=== PATIENT | female | born 1940 | race Caucasian/White ===

== ENCOUNTER 2019-04-14 05:51 | Inpatient (IN) | payer MEDICARE, OTHER ==
[2019-04-11 09:31] VITALS: BMI 34.3
--- NOTE | 2019-04-13 20:07 | HP ---
REASON FOR ADMISSION: "I am here for my back surgery." HISTORY OF PRESENT ILLNESS: All Jauregui is a 79-year-old woman whom we met in our Neurosurgery Clinic in July of 2018 for back and radiating leg pain. If Ms. Jauregui stands for any period of time, she begins to have aching in the gluteal muscles and radiating down the legs. She has to lean forward or sit down for relief. We attempted to manage this with injections and physical therapy as well as medication and activity modification, but the results were not satisfactory. The pain is still adversely affecting her quality of life. She would like to have a more permanent solution now. PAST MEDICAL HISTORY: Hyperlipidemia, seasonal allergies, chronic pain, hypertension. PAST SURGICAL HISTORY: 1. Hysterectomy in 1997. 2. Cardiac stents in 2009. 3. Total knee replacement in 2011. MEDICATIONS: 1. Isosorbide dinitrate. 2. Requip. 3. Atenolol. 4. Aspirin. 5. Ramipril. ALLERGIES: PENICILLIN, SULFA, AND CERTAIN CHOLESTEROL MEDICATIONS (STATINS, MOST LIKELY). FAMILY HISTORY: The patient's father is , had cancer while he was living. Her mother with a history of heart disease. Her children are alive and healthy. SOCIAL HISTORY: The patient denies any nicotine use in the past. She does not drink alcoholic beverages or use illicit drugs. She wants to remain active as a mother and grandmother and the pain is preventing her from doing that. PHYSICAL EXAMINATION: VITAL SIGNS: Ms. Jauregui is 5 feet 4 inches tall, she was about 195 pounds. GENERAL: Ms. Jauregui is awake and alert. She answers questions appropriately. Her cognitive function is normal. There is no dysesthesia or dysarthria. NEUROLOGIC: The cranial nerves are grossly intact. Her motor examination does not reveal any significant weakness in the iliopsoas, quadriceps, hamstrings, anterior tib, EHL, gastroc or toe flexors. There is no area of specific dermatomal sensory loss in the lower extremities. The reflexes are hypoactive, but symmetric. There is no clonus. ADMISSION FINDINGS AND TEST RESULTS: 1. There is a spondylolisthesis at L4-5 with significant stenosis. There is moderate-to- severe stenosis at L3-L4. 2. Flexion-extension x-rays do not show instability. There is right-sided foraminal disease around the L5 nerve root at L5-S1 (asymptomatic). IMPRESSION: 1. Lumbar stenosis. 2. Lumbar spondylolisthesis. 3. Neurogenic claudication, adversely affecting quality of life. 4. Ms. Jauregui is here for a decompression from L3-L5 with a transforaminal lumbar interbody arthrodesis at L4-L5 for her spondylolisthesis. Informed consent was obtained in the office. We will take her to the operating room. Job ID: [id number]
[2019-04-14] MEDS ORDERED: Levofloxacin 500 mg/D5W 100 ml Premix Bag ONE (06:14)
[2019-04-14] MEDS ORDERED: Clindamycin/D5W 900 mg/50 ml Premix Bag ONE (06:14)
[2019-04-14] MEDS ORDERED: Thrombin 5000 UNITS/5 ML VIAL ONE (06:27)
[2019-04-14 06:30] LABS: #Basophils 0.1 thou/uL (0.0-0.2); #Eosinphils 0.2 thou/uL (0.0-0.7); #Lymphocytes 2.3 thou/uL (1.20-3.40); #Monocytes 0.5 thou/uL (0.11-0.59); #Neutrophils 5.2 thou/uL (1.40-6.50); %Basophils 0.9 % (0.0-1.0); %Eosinophils 1.9 % (0.0-10.0); %Lymphocytes 28.4 % (21.0-51.0); %Monocytes 5.7 % (0.0-10.0); Hemoglobin 12.8 g/dL (12.0-16.0); Mean Corpuscular HGB CONC 33.6 g/dL (32.0-36.0); Mean Corpuscular Hemoglobin 31.4 pg (27.0-31.0); Mean Corpuscular Volume 93.4 fL (78.0-98.0); Mean Platelet Volume 8.2 fL (7.4-10.4); Platelet Count 305 thou/uL (130-400); RBC Distribution Width 11.8 % (11.5-14.5); Red Blood Cell (RBC) Count 4.09 mill/uL (4.20-5.40); White Blood Cell (WBC) Count 8.2 thou/uL (4.8-10.8)
[2019-04-14 06:37] LABS: INR-International Normal Ratio 0.9; PTT 25.4 SEC (22.9-36.1); Prothrombin Time 12.2 SEC (12.0-14.7)
[2019-04-14] MEDS ORDERED: Phenylephrine HCL 10 MG/ML VIAL ONE (06:44)
[2019-04-14] MEDS ORDERED: Fentanyl 100 MCG/2 ML VIAL ONE ×2 (06:44→11:33)
[2019-04-14] MEDS ORDERED: EPINEPHrine 1 MG/ML AMP ONE (06:45)
[2019-04-14] MEDS ORDERED: Bupivacaine PF 0.5% 30 ML VIAL ONE (06:45)
[2019-04-14 06:51] LABS: Anion Gap 13 mmol/L (10-20); BUN (Urea Nitrogen) 23 mg/dL (9.8-20.1); Calc. Creatinine Clearance 87 mL/min (70-130); Calcium 8.7 mg/dL (7.8-10.44); Carbon Dioxide 21 mmol/L (23-31); Chloride 110 mmol/L (98-107); Estimated GFR-MDRD 76; Glucose 99 mg/dL (83-110); Potassium 3.9 mmol/L (3.5-5.1); Sodium 140 mmol/L (136-145)
[2019-04-14] MEDS ORDERED: Glycopyrrolate 0.2 MG/ML 5 ML SYRINGE ONE (09:54)
[2019-04-14] MEDS ORDERED: Esmolol 100 MG/10 ML VIAL ONE (09:54)
[2019-04-14] MEDS ORDERED: PHENYLEPHRINE-NS 100 MCG/ML 10 ML SYRINGE ONE (09:54)
[2019-04-14] MEDS ORDERED: Ondansetron PF 4 MG/2 ML Vial ONE (09:54)
[2019-04-14] MEDS ORDERED: Lidocaine 1% PF 5 ML VIAL ONE (09:54)
[2019-04-14] MEDS ORDERED: Ketorolac Tromethamine 30 MG/ML VIAL ONE (09:54)
[2019-04-14] MEDS ORDERED: PROPOFOL 200 MG/20 ML VIAL ONE (09:54)
[2019-04-14] MEDS ORDERED: Dexamethasone 20 MG/5 ML VIAL ONE (09:54)
[2019-04-14] MEDS ORDERED: Rocuronium Bromide 10 MG/ML (10ML VIAL) ONE (09:54)
[2019-04-14] MEDS ORDERED: Promethazine HCl 25 MG/ML VIAL IM PRN ×2 (10:22→11:17)
[2019-04-14] MEDS ORDERED: Promethazine HCl 25 MG/ML VIAL SLOW IVP PRN (10:22)
[2019-04-14] MEDS ORDERED: Ondansetron HCl/PF 4 MG/2 ML Vial IVP PRN (10:22)
[2019-04-14] MEDS ORDERED: Milk Of Magnesia 30 ML UDCUP PO PRN (11:17)
[2019-04-14] MEDS ORDERED: Promethazine HCl 12.5 MG SUPP PR PRN (11:17)
[2019-04-14] MEDS ORDERED: Bisacodyl 10 MG SUPP PR PRN (11:17)
[2019-04-14] MEDS ORDERED: Ondansetron PF 4 MG/2 ML Vial IVP PRN (11:17)
[2019-04-14] MEDS ORDERED: Acetaminophen 650 MG Suppository PR PRN (11:17)
[2019-04-14] MEDS ORDERED: Mag-Al 1200 mg/1200 mg/30 ML UDCUP PO PRN (11:17)
[2019-04-14] MEDS ORDERED: Morphine 2 MG/ML SYRINGE SLOW IVP PRN (11:17)
[2019-04-14] MEDS ORDERED: diphenhydrAMINE 25 MG CAP PO PRN (11:17)
[2019-04-14] MEDS ORDERED: Promethazine 25 MG TAB PO PRN (11:17)
[2019-04-14] MEDS ORDERED: diphenhydrAMINE 50 MG/ML VIAL IVP PRN (11:17)
[2019-04-14] MEDS ORDERED: Morphine 4 MG/ML VIAL SLOW IVP PRN (11:17)
--- NOTE | 2019-04-14 15:02 | OP ---
DATE OF PROCEDURE: 04/14/2019 CODE INSPECTOR: Bill Giles PA-C. PREOPERATIVE INDICATION: Treat pain and prevent neurological deterioration. PREOPERATIVE DIAGNOSIS: Two-level lumbar spinal stenosis and foraminal stenosis with neurogenic claudication at L3-4 and L4-5, spondylolisthesis at L4-5. POSTOPERATIVE DIAGNOSIS: Two-level lumbar spinal stenosis and foraminal stenosis with neurogenic claudication at L3-4 and L4-5, spondylolisthesis at L4-5. PROCEDURE PERFORMED: Decompressive laminectomy, medial facetectomy, foraminotomy at L3-4 and L4-5; transforaminal lumbar interbody arthrodesis at L4-L5; placement of intervertebral biomechanical device, L4-L5; pedicle screw and ria instrumentation, L4-L5; posterolateral arthrodesis, L4-L5. PREOPERATIVE MEDICATION: Ancef 2 g IV. DRAIN NUMBER: 1. DRAIN TYPE: 10-Cub[place] Dmitriy. DESCRIPTION OF PROCEDURE: The patient was brought to the operating room. General endotracheal anesthesia was induced. The patient was carefully positioned on the Darío frame with the appropriate padding for the chest and hips. A lateral fluoro radiograph was used to plan our incision. The lumbar skin was sterilely prepped and draped. We opened with a 10-blade knife and we controlled bleeding with bipolar and monopolar cautery. We used monopolar cautery to dissect through subcutaneous tissues to the thoracodorsal fascia. We incised the fascia in the midline and reflected paraspinal muscles off the spinous process and lamina of L3, L4, and L5. A self-retaining retractor was placed and a lateral fluoro radiograph confirmed the levels upon which we were operating. We then used an Adson rongeur to remove the spinous process of L3-L4 and the top of L5. A Kerrison rongeur was used to fashion a laminectomy down the midline. We widened our laminectomy defect until we were lateral to the dura. We had to perform medial facetectomies and foraminotomies at L3-L4 and L4-L5. We ensured the L3, L4, and L5 nerve roots could pass out their respective foramina without impingement by performing these foraminotomies. The lateral recesses were well decompressed after our medial facetectomies. With the neural elements decompressed, we turned our attention to arthrodesis. We completed our facetectomy at L4-L5 on the right side. With a complete facetectomy done, we could access the intervertebral space through the foramen. We ensured the L4 nerve root was well decompressed and then we incised the disk space. We removed disk contents using curettes and rongeurs. We then used a set of curettes to prepare the endplates for grafting. A set of bone rasps were brought into the field. With sequentially larger rasp, we measured the height of the interspace to 10 mm. A 10 mm PEEK intervertebral graft was brought into the field. Our laminectomy bone and facetectomy bone was cleaned of all soft tissue attachments, morcellized and added into a demineralized bone matrix as our fusion substrate. The substrate was packed into the center of the PEEK device and the PEEK device was advanced into the L4-L5 interspace under radiographic guidance to the appropriate depth. We turned our attention to pedicle screw instrumentation. Using bony anatomic landmarks, palpation of the medial portion of the pedicles, and a lateral fluoro radiograph as our guide, we chose entry points for pedicle screws at L4 and L5 bilaterally. We drilled out our entry points and used a bone awl to create our trajectories through the pedicles. We tapped the trajectories with a threaded tap and probed them. They were all completely encased in bone. We placed 6.5 mm diameter screws into the pedicles of L4 and L5 bilaterally. We irrigated copiously with bacitracin irrigation. The rods were brought down into the screw heads and we tightened caps over the rods per. Before final tightening, we applied gentle compression across the interspace to keep the interbody graft in place. Using a torque/counter-torque mechanism, we ensured adequate tightness. We then irrigated once again with bacitracin irrigation. We decorticated the transverse processes of L4 and L5 bilaterally and left demineralized bone matrix and morselized autograft over the decorticated bone as our posterior lateral fusion substrate. We controlled epidural bleeding with gentle bipolar cautery. We tunneled the drain inferiorly through a separate stab incision. We irrigated the center of the wound once again. We treated the wound with vancomycin powder and we closed the wound in anatomical layers over the drain. A sterile dressing was applied. This was a clean case, no contamination. Job ID: [id number]
--- NOTE | 2019-04-14 15:26 | CON ---
DATE OF CONSULTATION: PRIMARY CARE PHYSICIAN: Dr. Jeffery Massey in [place]. PRIMARY TEAM: Neurosurgery, Dr. Mary. REASON FOR CONSULTATION: Medical management. HISTORY OF PRESENT ILLNESS: This is a 79-year-old white female with a known history of lumbar stenosis, who came in for laminectomy and transforaminal lumbar interbody arthrodesis. She had the procedure done earlier today and is doing well postoperatively without any complaints. Prior to surgery, she was having a lot of pain behind her right knee and numbness and tingling of her right toes and starting to get some in her left toes as well. PAST MEDICAL HISTORY: 1. Coronary artery disease. 2. Hypertension. 3. Hyperlipidemia. 4. Chronic pain. 5. Seasonal allergies. PAST SURGICAL HISTORY: 1. Hysterectomy. 2. Cholecystectomy. 3. Cardiac stents in 2009. 4. Negative cardiac stress test 2 months ago. 5. Right knee arthroscopy. 6. Left total knee replacement in 2011. FAMILY HISTORY: Mother with history of heart disease, from which she . Father with colon cancer, also . She has a sister with breast cancer. Another sister with ovarian cancer. SOCIAL HISTORY: No tobacco, alcohol, or illicit drug use. She is a . ALLERGIES: 1. PENICILLIN. 2. SULFA ANTIBIOTICS. 3. STATINS. CURRENT MEDICATIONS: 1. Aspirin 81 mg daily. 2. Lexapro 5 mg daily. 3. Ramipril 10 mg twice a day. 4. Ropinirole 0.25 mg at night. REVIEW OF SYSTEMS: CONSTITUTIONAL: No fevers. No chills. EYES: No double vision or blurred vision. ENT: No congestion or drainage. The patient had no sore throat coming in. She is a little scratchy since the surgery, and the intubation has caused a little bit. CARDIOVASCULAR: No chest pain. No palpitations or racing heart. PULMONARY: No coughing, wheezing, or shortness of breath. GASTROINTESTINAL: No abdominal pain. No nausea or vomiting. No diarrhea or constipation. GENITOURINARY: No dysuria or hematuria. MUSCULOSKELETAL: See HPI. SKIN: No rashes or other lesions she has noted. NEUROLOGIC: See HPI. No other focal weakness or focal neurologic signs. PHYSICAL EXAMINATION: VITAL SIGNS: Blood pressure 142/87, heart rate 87, temperature 97.1, respirations 20, O2 saturation 94% on room air. GENERAL: This is a well-developed, well-nourished, elderly, white female, in no acute distress. HEENT: Pupils are equal, round, and reactive to light. Oropharynx is clear without lesions, erythema, or exudate. NECK: Supple. No lymphadenopathy. No thyroid nodules or enlargement. No JVD. HEART: Regular rate and rhythm. No murmurs, rubs, or gallops. LUNGS: Clear to auscultation bilaterally. No wheezes, crackles, or rhonchi. ABDOMEN: Soft. Nontender to palpation. Normoactive bowel sounds. No hepatosplenomegaly or other masses. EXTREMITIES: No clubbing, cyanosis, or edema. She does have SCDs in place bilaterally on her lower legs. SKIN: No rashes or other lesions noted. NEUROLOGIC: She has intact strength and sensation in all extremities. No facial droop. PSYCHIATRIC: Alert and oriented x3. Normal mood and affect. LABORATORY DATA: CBC within normal limits. Coagulation profile normal. Basic metabolic panel is notable for chloride of 110, carbon dioxide of 21, BUN of 23, and rest is normal. ASSESSMENT: 1. Lumbar stenosis and spondylolisthesis, status post laminectomy and transforaminal lumbar interbody fusion at L3-L4 and L4-L5. 2. Hypertension. Resuming home blood pressure medications. 3. Coronary artery disease. We will resume aspirin when okay with Neurosurgery. 4. Hyperlipidemia. 5. Gastrointestinal prophylaxis. The patient is on Pepcid twice a day. 6. Deep venous thrombosis prophylaxis. The patient is on bilateral SCDs. CODE STATUS: I did discuss this with the patient. She is a full code. Should she be incapacitated, her daughters will be her medical decision makers. Their names are Stephanie Ferraro and Carmen Obando. Job ID: [id number]
[2019-04-14] MEDS: Clindamycin/D5W 900 MG in Premix Bag 1 BAG IVPB SCH ×2 (15:40→21:53)
[2019-04-14] MEDS: HYDROcodone/Acetaminophen 7.5/325 mg Tablet PO PRN ×2 (15:40→21:52)
[2019-04-14] MEDS: Scopolamine 1.5 mg/72 hour Patch TD SCH (15:46)
[2019-04-14] MEDS: Ramipril 5 MG CAP PO SCH (20:43)
[2019-04-14] MEDS: rOPINIRole HCl 0.25 MG TAB PO SCH (20:44)
[2019-04-14] MEDS: Famotidine 20 MG TAB PO SCH (20:44)
[2019-04-14] MEDS: Sodium Chloride 0.9% 1,000 ML IV SCH (21:53)
[2019-04-15] MEDS: HYDROcodone/Acetaminophen 7.5/325 mg Tablet PO PRN ×4 (03:45→23:34)
[2019-04-15] MEDS: Sodium Chloride 0.9% 1,000 ML IV SCH (03:49)
[2019-04-15] MEDS: Clindamycin/D5W 900 MG in Premix Bag 1 BAG IVPB SCH ×3 (05:44→21:11)
--- NOTE | 2019-04-15 06:46 | PRG ---
DATE OF SERVICE: 04/15/2019 I saw Ms. Jauregui this morning on rounds. She is one day out from a laminectomy with fusion. The excruciating right leg pain she got rolling over in bed prior to surgery, did not happen last night. She has not tested it with long walks yet, but she is optimistic that this has solved her problem. I do not see any fevers recorded on the electronic vital signs. Her other vitals have been stable. Her drain output is 250 mL since surgery. Today's plan is to stand, walk, and mobilize with physical therapy. I am going to have to leave the drain in and continue antibiotics until it tapers off. If she becomes independent for activities of daily living, she can look forward to discharge in the coming days. If she needs some more assistance, an inpatient rehabilitation is the likely transition point on the way home. Job ID: [id number]
[2019-04-15] MEDS: Famotidine 20 MG TAB PO SCH ×2 (08:18→20:55)
[2019-04-15] MEDS: Escitalopram Oxalate 10 mg Tablet PO SCH (08:19)
[2019-04-15] MEDS: Ramipril 5 MG CAP PO SCH (08:20)
--- NOTE | 2019-04-15 14:02 | PDOC.HOSPP ---
- Subjective Subjective: pt doing well, able to walked this am with PT and no pain on ambulation. - Objective Vital Signs & Weight: Vital Signs (12 hours) Temp Pulse Resp BP BP Pulse Ox 04/15/19 11:35 97.9 F 63 16 100/63 92 L 04/15/19 08:20 119/69 04/15/19 07:28 98.8 F 75 16 92/59 L 95 04/15/19 03:45 98.5 F 64 18 109/68 94 L Weight Weight 194 lb I&O: 04/14/19 04/15/19 04/16/19 06:59 06:59 06:59 Intake Total 850 Output Total 415 120 Balance 435 -120 Result Diagrams: 04/14/19 06:22 04/14/19 06:22 Hospitalist ROS - Medication Medications: Active Medications Generic Name Dose Route Start Last Admin Trade Name Freq PRN Reason Stop Dose Admin Hydrocodone Bitart/Acetaminophen 1 tab 04/14/19 11:17 04/15/19 08:19 [place] 7.5/325 PO 1 tab Q4H PRN Administration Mild Pain (1-3) Escitalopram Oxalate 5 mg 04/15/19 09:00 04/15/19 08:19 Lexapro PO 5 mg DAILY NAKIA Administration Famotidine 20 mg 04/14/19 21:00 04/15/19 08:18 Pepcid PO 20 mg BID NAKIA Administration Clindamycin Phosphate/Dextrose 50 mls @ 100 mls/hr 04/14/19 14:00 04/15/19 05 :44 900 mg/ Device IVPB 50 mls Q8H NAKIA Administration Sodium Chloride 1,000 mls @ 75 mls/hr 04/14/19 11:30 04/15/19 03:49 Normal Saline 0.9% IV Not Given .[id number] NAKIA Levofloxacin 500 mg 04/15/19 06:00 04/15/19 05:45 Levaquin PO 500 mg 0600 NAKIA Administration Ramipril 10 mg 04/14/19 21:00 04/15/19 08:20 Altace PO Not Given BID NAKIA Ropinirole HCl 0.25 mg 04/14/19 21:00 04/14/19 20:44 Requip PO 0.25 mg HS NAKIA Administration Scopolamine 1.5 mg 04/14/19 11:30 04/14/19 15:46 Transderm Scop TD 1.5 mg Q3D NAKIA Administration - Exam General Appearance: NAD, awake alert Eye: PERRL ENT: normocephalic atraumatic Neck: supple, symmetric Heart: RRR, no murmur Respiratory: CTAB, no wheezes Gastrointestinal: soft, non-tender, non-distended, normal bowel sounds Neurological - other findings: l3-L5 laminectomy Hosp A/P - Plan old records reviewed/req s/p Laminectomy L3 - L5 -participating in PT and doing well. -on clinda adn LQ pain mgmt - she is on several analgesic at freq..doses --titrated, added stool softener HTN -on ramipril--will hold -BP on the low end - HLP - no statin on board RLS - ropirolone will follow her closely.
[2019-04-15] MEDS ORDERED: hydrALAZINE 20 MG/ML VIAL SLOW IVP PRN (14:09)
[2019-04-15] MEDS: Acetaminophen 325 MG TAB PO PRN (14:54)
[2019-04-15] MEDS: tiZANidine HCl 4 MG TAB PO PRN (20:55)
[2019-04-15] MEDS: rOPINIRole HCl 0.25 MG TAB PO SCH (21:01)
[2019-04-15] MEDS: Senokot S 8.6-50 MG TAB PO SCH (21:01)
[2019-04-16] MEDS: Clindamycin/D5W 900 MG in Premix Bag 1 BAG IVPB SCH ×3 (05:58→21:59)
[2019-04-16] MEDS: Acetaminophen 325 MG TAB PO PRN (05:58)
--- NOTE | 2019-04-16 07:17 | PRG ---
DATE OF SERVICE: 04/16/2019 I saw Ms. Jauregui in our hospital room this morning. She is 2 days out from decompression and fusion of lumbar spine. Her drain output was 165 mL since 7 p.m. yesterday. There has been no electronic record of this, however. Ms. Jauregui was anxious to get inpatient rehabilitation, but she walked five times around the floor yesterday and she was not felt to be a candidate, but rather a candidate for home health therapy. Overnight, her vital signs been stable. I do not see any fevers recorded. Her neurological function is good. The drain output is above 10 mL an hour. We will wait for the drain output to taper off before discharge. She will take advantage of her access to physical therapy today and learn how to get in and out of a flat bed (which she has at home), so that she is safe for activities of daily living. Job ID: [id number]
[2019-04-16] MEDS: Ramipril 5 MG CAP PO SCH (08:59)
[2019-04-16] MEDS: Senokot S 8.6-50 MG TAB PO SCH ×2 (09:00→20:08)
[2019-04-16] MEDS: Escitalopram Oxalate 10 mg Tablet PO SCH (09:00)
[2019-04-16] MEDS: Famotidine 20 MG TAB PO SCH ×2 (09:00→20:08)
--- NOTE | 2019-04-16 11:58 | PDOC.HOSPP ---
- Subjective Subjective: she is doing well, participating w.. PT. BP and BG good. - Objective Vital Signs & Weight: Vital Signs (12 hours) Temp Pulse Resp BP Pulse Ox 04/16/19 11:23 97.8 F 64 16 112/68 96 04/16/19 07:29 97.9 F 60 16 93/59 L 92 L 04/16/19 03:11 97.5 F L 54 L 16 97/61 94 L Weight Weight 194 lb I&O: 04/15/19 04/16/19 04/17/19 06:59 06:59 06:59 Intake Total 850 790 Output Total 415 455 Balance 435 335 Result Diagrams: 04/14/19 06:22 04/14/19 06:22 Hospitalist ROS - Medication Medications: Active Medications Generic Name Dose Route Start Last Admin Trade Name Freq PRN Reason Stop Dose Admin Acetaminophen 650 mg 04/14/19 11:17 04/16/19 05:58 Tylenol PO 650 mg Q4H PRN Administration Headache/Fever or Pain Hydrocodone Bitart/Acetaminophen 1 tab 04/15/19 14:17 04/15/19 23:34 [place] 7.5/325 PO 1 tab Q4H PRN Administration Mild Pain (1-3) Escitalopram Oxalate 5 mg 04/15/19 09:00 04/16/19 09:00 Lexapro PO 5 mg DAILY NAKIA Administration Famotidine 20 mg 04/14/19 21:00 04/16/19 09:00 Pepcid PO 20 mg BID NAKIA Administration Clindamycin Phosphate/Dextrose 50 mls @ 100 mls/hr 04/14/19 14:00 04/16/19 05 :58 900 mg/ Device IVPB 50 mls Q8H NAKIA Administration Levofloxacin 500 mg 04/15/19 06:00 04/16/19 05:58 Levaquin PO 500 mg 0600 NAKIA Administration Ramipril 10 mg 04/16/19 09:00 04/16/19 08:59 Altace PO Not Given DAILY NAKIA Ropinirole HCl 0.25 mg 04/14/19 21:00 04/15/19 21:01 Requip PO 0.25 mg HS NAKIA Administration Scopolamine 1.5 mg 04/14/19 11:30 04/14/19 15:46 Transderm Scop TD 1.5 mg Q3D NAKIA Administration Senna/Docusate Sodium 1 tab 04/15/19 21:00 04/16/19 09:00 Senokot S PO 1 tab BID NAKIA Administration Tizanidine HCl 4 mg 04/14/19 11:17 04/15/19 20:55 Zanaflex PO 4 mg Q6H PRN Administration Muscle Spasm - Exam General Appearance: NAD, awake alert Eye: PERRL ENT: normocephalic atraumatic Neck: supple, symmetric Heart: RRR, no murmur Respiratory: CTAB, no wheezes Gastrointestinal: soft, non-tender, normal bowel sounds Neurological: no focal deficits Hosp A/P - Plan s/p Laminectomy L3 - L5 -participating in PT and doing well. -on clinda adn LQ pain mgmt - she is on several analgesic at freq..doses --titrated, added stool softener HTN -on ramipril--will hold -BP on the low end - HLP - no statin on board RLS - ropirolone BP and BG are good. will follow her closely.
[2019-04-16] MEDS: HYDROcodone/Acetaminophen 7.5/325 mg Tablet PO PRN ×2 (14:09→20:06)
[2019-04-16] MEDS: tiZANidine HCl 4 MG TAB PO PRN (15:04)
[2019-04-16] MEDS: rOPINIRole HCl 0.25 MG TAB PO SCH (20:08)
[2019-04-17] MEDS: HYDROcodone/Acetaminophen 7.5/325 mg Tablet PO PRN ×4 (04:17→23:11)
[2019-04-17] MEDS: Clindamycin/D5W 900 MG in Premix Bag 1 BAG IVPB SCH ×3 (05:23→21:12)
[2019-04-17 07:05] LABS: #Eosinphils 0.2 thou/uL (0.0-0.7); #Lymphocytes 1.9 thou/uL (1.20-3.40); #Monocytes 0.5 thou/uL (0.11-0.59); #Neutrophils 3.8 thou/uL (1.40-6.50); %Basophils 0.1 % (0.0-1.0); %Eosinophils 3.1 % (0.0-10.0); %Lymphocytes 29.3 % (21.0-51.0); %Monocytes 8.5 % (0.0-10.0); Hemoglobin 9.5 g/dL (12.0-16.0); Mean Corpuscular HGB CONC 34.1 g/dL (32.0-36.0); Mean Corpuscular Hemoglobin 32.1 pg (27.0-31.0); Mean Corpuscular Volume 94.2 fL (78.0-98.0); Mean Platelet Volume 8.2 fL (7.4-10.4); Platelet Count 258 thou/uL (130-400); RBC Distribution Width 11.7 % (11.5-14.5); Red Blood Cell (RBC) Count 2.96 mill/uL (4.20-5.40); White Blood Cell (WBC) Count 6.4 thou/uL (4.8-10.8)
--- NOTE | 2019-04-17 07:10 | PRG ---
DATE OF SERVICE: 04/17/2019 Ms. Jauregui is 3 days out from decompression and fusion of lumbar spine. She had some recurrent right leg pain in a similar distribution before surgery, but it is intermittent and not as severe. The more she walks, the better it feels. Otherwise, she is doing well. Among electronically recorded vital signs, I find no fevers. Her blood pressures had been in the 100s to the 120s. Her pulse have been in 60s and 70s. Neurological function in lower extremities is stable. The drain output is higher than I would like to see before removal. It is averaging around 10 mL an hour. Our plan is to check a CBC and chemistry. Most of the drain output looks serous from tissue fluid. There was a significant amount of this during dissection and may be indicative of some dependent edema and poor cardiac function. Nonetheless, a CBC would be helpful to make sure that she is not losing hemoglobin. Today's plan is to work more with physical therapy to get in and out of bed on her own to flex her hips when she is resting in bed to ensure that scar tissue does not tether the nerves too strenuously. She should walk frequently. We will use thumbprint suction only on the drain so that the negative pressure is slightly reduced. Then, record the drain output electronically every 2 hours so that we can have a good idea what the trend is. Job ID: [id number]
[2019-04-17 07:13] LABS: Anion Gap 12 mmol/L (10-20); BUN (Urea Nitrogen) 10 mg/dL (9.8-20.1); Calc. Creatinine Clearance 82 mL/min (70-130); Calcium 8.2 mg/dL (7.8-10.44); Carbon Dioxide 23 mmol/L (23-31); Chloride 105 mmol/L (98-107); Estimated GFR-MDRD 70; Glucose 89 mg/dL (83-110); Potassium 3.6 mmol/L (3.5-5.1); Sodium 136 mmol/L (136-145)
[2019-04-17] MEDS: Famotidine 20 MG TAB PO SCH ×2 (08:14→19:55)
[2019-04-17] MEDS: Escitalopram Oxalate 10 mg Tablet PO SCH (08:14)
[2019-04-17] MEDS: Senokot S 8.6-50 MG TAB PO SCH ×2 (08:14→19:55)
[2019-04-17] MEDS: Ramipril 5 MG CAP PO SCH (08:15)
[2019-04-17] MEDS: Scopolamine 1.5 mg/72 hour Patch TD SCH (11:00)
[2019-04-17] MEDS: tiZANidine HCl 4 MG TAB PO PRN (12:18)
--- NOTE | 2019-04-17 15:02 | PDOC.HOSPP ---
- Subjective Subjective: pt ambulated well in the hallway, no pain at baseline. NS drain on the back has serosanguinous and actively draining. - Objective Vital Signs & Weight: Vital Signs (12 hours) Temp Pulse Resp BP Pulse Ox 04/17/19 11:45 97.7 F 75 18 118/70 96 04/17/19 07:40 98.1 F 61 18 149/63 H 96 04/17/19 03:14 98.0 F 70 16 121/71 96 Weight Weight 194 lb I&O: 04/16/19 04/17/19 04/18/19 06:59 06:59 06:59 Intake Total 790 1250 Output Total 455 385 60 Balance 335 865 -60 Result Diagrams: 04/17/19 06:45 04/17/19 06:45 Hospitalist ROS - Medication Medications: Active Medications Generic Name Dose Route Start Last Admin Trade Name Freq PRN Reason Stop Dose Admin Acetaminophen 650 mg 04/14/19 11:17 04/16/19 05:58 Tylenol PO 650 mg Q4H PRN Administration Headache/Fever or Pain Hydrocodone Bitart/Acetaminophen 1 tab 04/15/19 14:17 04/17/19 08:14 [place] 7.5/325 PO 1 tab Q4H PRN Administration Mild Pain (1-3) Escitalopram Oxalate 5 mg 04/15/19 09:00 04/17/19 08:14 Lexapro PO 5 mg DAILY NAKIA Administration Famotidine 20 mg 04/14/19 21:00 04/17/19 08:14 Pepcid PO 20 mg BID NAKIA Administration Clindamycin Phosphate/Dextrose 50 mls @ 100 mls/hr 04/14/19 14:00 04/17/19 05 :23 900 mg/ Device IVPB 50 mls Q8H NAKIA Administration Levofloxacin 500 mg 04/15/19 06:00 04/17/19 05:23 Levaquin PO 500 mg 0600 NAKIA Administration Ramipril 10 mg 04/16/19 09:00 04/17/19 08:15 Altace PO 10 mg DAILY NAKIA Administration Ropinirole HCl 0.25 mg 04/14/19 21:00 04/16/19 20:08 Requip PO 0.25 mg HS NAKIA Administration Scopolamine 1.5 mg 04/14/19 11:30 04/17/19 11:00 Transderm Scop TD Not Given Q3D NAKIA Senna/Docusate Sodium 1 tab 04/15/19 21:00 04/17/19 08:14 Senokot S PO 1 tab BID NAKIA Administration Tizanidine HCl 4 mg 04/14/19 11:17 04/17/19 12:18 Zanaflex PO 4 mg Q6H PRN Administration Muscle Spasm - Exam General Appearance: NAD, awake alert Eye: PERRL ENT: normocephalic atraumatic Neck: supple, symmetric Heart: RRR Respiratory: CTAB Gastrointestinal: soft, non-tender, normal bowel sounds Extremities: no cyanosis Neurological - other findings: laminectomy - drain vac Hosp A/P - Plan s/p Laminectomy L3 - L5 -participating in PT and doing well. -on clinda adn LQ pain mgmt - she is on several analgesic at freq..doses --titrated, added stool softener HTN -on ramipril--restarted on that -BP -acceptable range on 30 - HLP - no statin on board RLS - ropirolone BP and BG are good. will follow her closely. She is medically stable to be transferred to rehab, when available, at the discretion of [facility].
[2019-04-17] MEDS: rOPINIRole HCl 0.25 MG TAB PO SCH (19:55)
[2019-04-18] MEDS: HYDROcodone/Acetaminophen 7.5/325 mg Tablet PO PRN ×5 (05:11→21:00)
[2019-04-18] MEDS: Clindamycin/D5W 900 MG in Premix Bag 1 BAG IVPB SCH ×3 (05:12→21:00)
[2019-04-18 05:21] LABS: #Basophils 0.1 thou/uL (0.0-0.2); #Eosinphils 0.2 thou/uL (0.0-0.7); #Lymphocytes 1.5 thou/uL (1.20-3.40); #Monocytes 0.4 thou/uL (0.11-0.59); %Basophils 1.4 % (0.0-1.0); %Eosinophils 3.4 % (0.0-10.0); %Lymphocytes 29.2 % (21.0-51.0); %Monocytes 8.1 % (0.0-10.0); %Neutrophils 57.9 % (42.0-75.0); Mean Corpuscular HGB CONC 33.2 g/dL (32.0-36.0); Mean Corpuscular Hemoglobin 31.4 pg (27.0-31.0); Mean Corpuscular Volume 94.4 fL (78.0-98.0); Mean Platelet Volume 8.5 fL (7.4-10.4); Platelet Count 227 thou/uL (130-400); RBC Distribution Width 11.8 % (11.5-14.5); Red Blood Cell (RBC) Count 2.87 mill/uL (4.20-5.40); White Blood Cell (WBC) Count 5.1 thou/uL (4.8-10.8)
--- NOTE | 2019-04-18 07:40 | PRG ---
DATE OF SERVICE: 04/18/2019 Ms. Jauregui is 4 days out from decompression and fusion of the lumbar spine. She has done well with her moving in and out of bed and walking. Her drain continues to put out some tissue fluid. Overnight, the vitals have been stable. Blood pressures have been in the 90s to 120s. The neurological function in lower extremities good. Plan is to leave the drain in, but on no suction and have it emptied every 2 hours over the next 24 hours. We can remove the drain tomorrow morning and send her home. I am going to call in prescriptions to the [facility] in [place], [place], and we will see her in the office 2 weeks' later. Job ID: [id number]
[2019-04-18] MEDS: Ramipril 5 MG CAP PO SCH (09:14)
[2019-04-18] MEDS: Escitalopram Oxalate 10 mg Tablet PO SCH (09:14)
[2019-04-18] MEDS: Famotidine 20 MG TAB PO SCH ×2 (09:15→20:14)
[2019-04-18] MEDS: Senokot S 8.6-50 MG TAB PO SCH ×2 (09:16→20:14)
--- NOTE | 2019-04-18 14:16 | PDOC.HOSPP ---
- Subjective Encounter Date: 04/18/19 Encounter Time: 14:14 Subjective: Patient seen and examined. No new complaints. No overnight events - Objective Vital Signs & Weight: Vital Signs (12 hours) Temp Pulse Resp BP BP Pulse Ox 04/18/19 09:14 108/64 04/18/19 07:45 98.3 F 82 20 107/65 95 04/18/19 03:00 98.0 F 68 16 124/69 98 Weight Weight 194 lb I&O: 04/17/19 04/18/19 04/19/19 06:59 06:59 06:59 Intake Total 1250 1730 Output Total 385 295 80 Balance 865 1435 -80 Result Diagrams: 04/18/19 04:57 04/17/19 06:45 Hospitalist ROS - Review of Systems ENT: denies: ear pain, ear discharge, nose pain, nose discharge, nose congestion , mouth pain, mouth swelling, throat pain, throat swelling, other Respiratory: denies: cough, dry, shortness of breath, hemoptysis, SOB with excertion, pleuritic pain, sputum, wheezing, other Cardiovascular: denies: chest pain, palpitations, orthopnea, paroxysmal noc. dyspnea, edema, light headedness, other Gastrointestinal: denies: nausea, vomiting, abdominal pain, diarrhea, constipation, melena, hematochezia, other Genitourinary: denies: dysuria, frequency, incontinence, hematuria, retention, other Musculoskeletal: denies: neck pain, shoulder pain, arm pain, back pain, hand pain, leg pain, foot pain, other - Medication Medications: Active Medications Generic Name Dose Route Start Last Admin Trade Name Freq PRN Reason Stop Dose Admin Acetaminophen 650 mg 04/14/19 11:17 04/16/19 05:58 Tylenol PO 650 mg Q4H PRN Administration Headache/Fever or Pain Hydrocodone Bitart/Acetaminophen 2 tab 04/14/19 11:17 04/17/19 16:46 [place] 7.5/325 PO 2 tab Q4H PRN Administration Moderate Pain (4-6) Hydrocodone Bitart/Acetaminophen 1 tab 04/15/19 14:17 04/18/19 09:12 [place] 7.5/325 PO 1 tab Q4H PRN Administration Mild Pain (1-3) Escitalopram Oxalate 5 mg 04/15/19 09:00 04/18/19 09:14 Lexapro PO 5 mg DAILY NAKIA Administration Famotidine 20 mg 04/14/19 21:00 04/18/19 09:15 Pepcid PO 20 mg BID NAKIA Administration Clindamycin Phosphate/Dextrose 50 mls @ 100 mls/hr 04/17/19 22:00 04/18/19 05 :12 900 mg/ Device IVPB 50 mls Q8HR NAKIA Administration Levofloxacin 500 mg 04/15/19 06:00 04/18/19 05:12 Levaquin PO 500 mg 0600 NAKIA Administration Ramipril 10 mg 04/16/19 09:00 04/18/19 09:14 Altace PO 10 mg DAILY NAKIA Administration Ropinirole HCl 0.25 mg 04/14/19 21:00 04/17/19 19:55 Requip PO 0.25 mg HS NAKIA Administration Scopolamine 1.5 mg 04/14/19 11:30 04/17/19 11:00 Transderm Scop TD Not Given Q3D NAKIA Senna/Docusate Sodium 1 tab 04/15/19 21:00 04/18/19 09:16 Senokot S PO 1 tab BID NAKIA Administration Tizanidine HCl 4 mg 04/14/19 11:17 04/17/19 12:18 Zanaflex PO 4 mg Q6H PRN Administration Muscle Spasm - Exam General Appearance: NAD, awake alert Eye: PERRL, anicteric sclera ENT: normocephalic atraumatic, no oropharyngeal lesions Neck: supple, symmetric, no JVD, no thyromegaly Heart: RRR, no murmur, no gallops, no rubs Respiratory: CTAB, no wheezes, no rales, no ronchi Gastrointestinal: soft, non-tender, non-distended, normal bowel sounds Gastrointestinal - other findings: brace+ Extremities: no cyanosis, no clubbing, no edema Skin: normal turgor, no lesions Neurological: no focal deficits Musculoskeletal: normal tone, normal strength Psychiatric: normal affect, normal behavior Hosp A/P (1) S/P lumbar laminectomy Code(s): Z98.890 - OTHER SPECIFIED POSTPROCEDURAL STATES Status: Acute (2) Obesity (BMI 30-39.9) Code(s): E66.9 - OBESITY, UNSPECIFIED Status: Chronic (3) Anxiety and depression Code(s): F41.9 - ANXIETY DISORDER, UNSPECIFIED; F32.9 - MAJOR DEPRESSIVE DISORDER, SINGLE EPISODE, UNSPECIFIED Status: Chronic (4) Hypertension Code(s): I10 - ESSENTIAL (PRIMARY) HYPERTENSION Status: Chronic Qualifiers: Hypertension type: essential hypertension Qualified Code(s): I10 - Essential (primary) hypertension - Plan old records reviewed/req, plan discussed w/ family, PT/OT, social insurance administrator 04/18/19 medication reviewed and continue to provide symptomatic treatment and supportive care stable and improving drain as per surgeon, still has more output discharge planning discussed with family
[2019-04-18] MEDS: rOPINIRole HCl 0.25 MG TAB PO SCH (20:14)
[2019-04-19] MEDS: HYDROcodone/Acetaminophen 7.5/325 mg Tablet PO PRN ×2 (03:43→12:16)
[2019-04-19] MEDS: Clindamycin/D5W 900 MG in Premix Bag 1 BAG IVPB SCH ×2 (05:13→11:59)
[2019-04-19] MEDS: Famotidine 20 MG TAB PO SCH (08:43)
[2019-04-19] MEDS: Ramipril 5 MG CAP PO SCH (08:43)
[2019-04-19] MEDS: Escitalopram Oxalate 10 mg Tablet PO SCH (08:44)
[2019-04-19] MEDS: Senokot S 8.6-50 MG TAB PO SCH (08:44)
--- NOTE | 2019-04-19 10:09 | PDOC.HOSPP ---
- Subjective Encounter Date: 04/19/19 Encounter Time: 08:20 Subjective: Patient seen and examined. No new complaints. No overnight events - Objective Vital Signs & Weight: Vital Signs (12 hours) Temp Pulse Resp BP BP Pulse Ox 04/19/19 08:43 108/64 04/19/19 07:11 98.1 F 78 16 137/81 96 04/19/19 05:02 98.2 F 71 16 118/69 93 L 04/18/19 23:58 98.5 F 76 16 120/73 95 Weight Weight 194 lb I&O: 04/18/19 04/19/19 04/20/19 06:59 06:59 06:59 Intake Total 1730 1490 Output Total 295 127 Balance 1435 1363 Result Diagrams: 04/18/19 04:57 04/17/19 06:45 Hospitalist ROS - Review of Systems ENT: denies: ear pain, ear discharge, nose pain, nose discharge, nose congestion , mouth pain, mouth swelling, throat pain, throat swelling, other Respiratory: denies: cough, dry, shortness of breath, hemoptysis, SOB with excertion, pleuritic pain, sputum, wheezing, other Cardiovascular: denies: chest pain, palpitations, orthopnea, paroxysmal noc. dyspnea, edema, light headedness, other Gastrointestinal: denies: nausea, vomiting, abdominal pain, diarrhea, constipation, melena, hematochezia, other Genitourinary: denies: dysuria, frequency, incontinence, hematuria, retention, other - Medication Medications: Active Medications Generic Name Dose Route Start Last Admin Trade Name Freq PRN Reason Stop Dose Admin Acetaminophen 650 mg 04/14/19 11:17 04/16/19 05:58 Tylenol PO 650 mg Q4H PRN Administration Headache/Fever or Pain Hydrocodone Bitart/Acetaminophen 2 tab 04/14/19 11:17 04/19/19 03:43 [place] 7.5/325 PO 2 tab Q4H PRN Administration Moderate Pain (4-6) Hydrocodone Bitart/Acetaminophen 1 tab 04/15/19 14:17 04/18/19 21:00 [place] 7.5/325 PO 1 tab Q4H PRN Administration Mild Pain (1-3) Escitalopram Oxalate 5 mg 04/15/19 09:00 04/19/19 08:44 Lexapro PO 5 mg DAILY NAKIA Administration Famotidine 20 mg 04/14/19 21:00 04/19/19 08:43 Pepcid PO 20 mg BID NAKIA Administration Clindamycin Phosphate/Dextrose 50 mls @ 100 mls/hr 04/17/19 22:00 04/19/19 05 :13 900 mg/ Device IVPB 50 mls Q8HR NAKIA Administration Levofloxacin 500 mg 04/15/19 06:00 04/19/19 05:13 Levaquin PO 500 mg 0600 NAKIA Administration Ramipril 10 mg 04/16/19 09:00 04/19/19 08:43 Altace PO 10 mg DAILY NAKIA Administration Ropinirole HCl 0.25 mg 04/14/19 21:00 04/18/19 20:14 Requip PO 0.25 mg HS NAKIA Administration Scopolamine 1.5 mg 04/14/19 11:30 04/17/19 11:00 Transderm Scop TD Not Given Q3D NAKIA Senna/Docusate Sodium 1 tab 04/15/19 21:00 04/19/19 08:44 Senokot S PO 1 tab BID NAKIA Administration Tizanidine HCl 4 mg 04/14/19 11:17 04/17/19 12:18 Zanaflex PO 4 mg Q6H PRN Administration Muscle Spasm - Exam General Appearance: NAD, awake alert Eye: PERRL, anicteric sclera ENT: normocephalic atraumatic, no oropharyngeal lesions Neck: supple, symmetric, no JVD, no thyromegaly Heart: RRR, no murmur, no gallops, no rubs Respiratory: CTAB, no wheezes Gastrointestinal: soft, non-tender, non-distended, normal bowel sounds Extremities: no cyanosis, no clubbing, no edema Skin: normal turgor, no lesions Neurological: no focal deficits Musculoskeletal: normal tone, normal strength Psychiatric: normal affect, normal behavior Hosp A/P (1) S/P lumbar laminectomy Code(s): Z98.890 - OTHER SPECIFIED POSTPROCEDURAL STATES Status: Acute (2) Obesity (BMI 30-39.9) Code(s): E66.9 - OBESITY, UNSPECIFIED Status: Chronic (3) Anxiety and depression Code(s): F41.9 - ANXIETY DISORDER, UNSPECIFIED; F32.9 - MAJOR DEPRESSIVE DISORDER, SINGLE EPISODE, UNSPECIFIED Status: Chronic (4) Hypertension Code(s): I10 - ESSENTIAL (PRIMARY) HYPERTENSION Status: Chronic Qualifiers: Hypertension type: essential hypertension Qualified Code(s): I10 - Essential (primary) hypertension - Plan old records reviewed/req, plan discussed w/ family 04/18/19 medication reviewed and continue to provide symptomatic treatment and supportive care stable and improving drain as per surgeon, still has more output discharge planning discussed with family 04/19/19 stable for discharge will sign off arrange home health medication reviewed and continue to provide symptomatic treatment and supportive care discussed with family
[2019-04-19 11:22] VITALS: BP 115/68; TEMP 98
--- NOTE | 2019-04-19 15:52 | DIS ---
DATE OF ADMISSION: 04/14/2019 DATE OF DISCHARGE: 04/19/2019 PRIMARY CARE PHYSICIAN: Dr. Shilpa Rao. DISCHARGE DISPOSITION: Home. PRIMARY DISCHARGE DIAGNOSIS: Status post lumbar laminectomy. SECONDARY DISCHARGE DIAGNOSES: 1. Anxiety and depression. 2. Hypertension. 3. Obesity. PRIMARY PROCEDURE/OPERATION: Dr. Mary did decompressive laminectomy, medial facetectomy, and foraminectomy. RADIOLOGICAL INVESTIGATION: None. SIGNIFICANT LABORATORY DATA: WBC 5.1, hemoglobin 9.0, platelets 227. INR 0.9. Sodium 136, creatinine 0.79. DISCHARGE MEDICATIONS: 1. Lexapro 5 mg p.o. daily. 2. Ramipril 10 mg b.i.d. 3. Ropinirole 0.25 mg p.o. at bedtime. CONTRAINDICATION: None. CODE STATUS: Full code. INPATIENT EXHIBIT DISPLAY REPRESENTATIVE: Dr. Mary was following while in hospital. TEST RESULTS PENDING ON DISCHARGE: None. ALLERGIES: PENICILLIN, STATIN. DISCHARGE PLAN: Posthospital, the patient will follow up with Dr. Mary as instructed and the patient will follow up with primary care physician in 1 week. HOSPITAL COURSE: This is a 79-year-old female, who was admitted electively by Dr. Mary. Please see his H and P for further details. The patient was admitted for lumbar laminectomy, facetectomy, and foraminectomy, which was done on April 14, 2019. Postoperatively, the patient had drain in place and Sound Team was consulted for medical comanagement. The patient's medical problems remained stable. We continued all her previous medication and she will continue upon discharge as well. The patient was discharged home with Home Health. Drain was removed, and the patient was ambulatory and tolerating p.o. well. By the time of discharge, the patient was hemodynamically stable, tolerating p.o. well. The patient is seen and examined, and plan of care discussed with the family member at bedside as well. Job ID: [id number]
--- NOTE | 2019-04-20 16:12 | DIS ---
DATE OF ADMISSION: 04/14/2019 DATE OF DISCHARGE: 04/19/2019 Ms. Jauregui is on the 5th day of her hospital stay status post lumbar laminectomy and TLIF with Dr. Mary. She was admitted on April 14, 2019. She was subsequently discharged on April 19, 2019. ADMISSION DIAGNOSIS: Status post lumbar fusion. DISCHARGE DIAGNOSIS: Status post lumbar fusion. Ms. Jauregui's hospital course was somewhat complicated by continuous drainage through her TRUMAN drain, which likely represented fat necrosis and serous liquefaction of the subcutaneous tissues within the incision. Drains actually tapered significantly enough that on April 19, this was discontinued. Consultations were ordered to Case Management, Rehab and to PT and OT. After they worked with her, they deemed she would be safe to go home. She was ultimately discharged in good condition with 2-week followup planned in the outpatient clinic of Dr. Mary. Job ID: [id number]
== END 2019-04-19 12:50 | disposition home health service (06) | DRG 455 ==
LOC: SURG A 05:51
PROVIDERS: ADMIT Neurological Surgery; ATTEND Neurological Surgery
PROC: 0SG00AJ Fusion of Lumbar Vertebral Joint with Interbody Fusion Device, Posterior Approach, Anterior Column, Open Approach (ICD-10-PCS; principal; 2019-04-14)
PROC: 0SG0071 Fusion of Lumbar Vertebral Joint with Autologous Tissue Substitute, Posterior Approach, Posterior Column, Open Approach (ICD-10-PCS; 2019-04-14)
PROC: 0SB20ZZ Excision of Lumbar Vertebral Disc, Open Approach (ICD-10-PCS; 2019-04-14)
PROC: 01NB0ZZ Release Lumbar Nerve, Open Approach (ICD-10-PCS; 2019-04-14)
DX: M43.16 Spondylolisthesis, lumbar region (principal); M48.062 Spinal stenosis, lumbar region with neurogenic claudication; E78.5 Hyperlipidemia, unspecified; J30.2 Other seasonal allergic rhinitis; G25.81 Restless legs syndrome; E66.9 Obesity, unspecified; I10 Essential (primary) hypertension; R78.5 Finding of other psychotropic drug in blood; I25.10 Atherosclerotic heart disease of native coronary artery without angina pectoris; G89.29 Other chronic pain; F32.9 Major depressive disorder, single episode, unspecified; F41.9 Anxiety disorder, unspecified; Z96.652 Presence of left artificial knee joint; Z90.710 Acquired absence of both cervix and uterus; Z95.5 Presence of coronary angioplasty implant and graft; Z79.82 Long term (current) use of aspirin; Z79.899 Other long term (current) drug therapy; Z88.0 Allergy status to penicillin; Z88.2 Allergy status to sulfonamides; Z88.8 Allergy status to other drugs, medicaments and biological substances; Z99.89 Dependence on other enabling machines and devices; Z68.34 Body mass index [BMI] 34.0-34.9, adult; M79.89 Other specified soft tissue disorders
CPT/HCPCS: 36415; 76000; 80048; 85025; 85610; 85730; C1713; C1768; J0171; J1100; J1885; J1956; J2001; J2370; J2405; J2704; J3010; J3370; J3490; S0020